=== PATIENT | female | born 1950 ===

== ENCOUNTER 2018-04-13 08:27 | Emergency (ER) | payer OTHER ==
[~2018-04-13] VITALS: Ht 157.5 cm; Wt 70.3 kg
[~2018-04-13 08:27] MED LIST: PROZAC10 MG
== END 2018-04-13 13:08 | disposition home or self-care (01) ==
LOC: ER 08:27
DX: L02.511 Cutaneous abscess of right hand (principal); B95.61 Methicillin susceptible Staphylococcus aureus infection as the cause of diseases classified elsewhere